=== PATIENT | female | born 1970 | race Caucasian/White ===

== ENCOUNTER 2018-01-22 19:06 | Emergency (ER) | payer MEDICAID ==
[~2018-01-22] VITALS: Ht 165.1 cm; Wt 61.2 kg
[2018-01-22 19:19] VITALS: Ht 165.1 cm; Wt 61.2 kg
[2018-01-22 21:48] VITALS: BP 122/88
== END 2018-01-22 21:48 | disposition home or self-care (01) ==
LOC: ED 19:06
DX: S61.011A Laceration without foreign body of right thumb without damage to nail, initial encounter (principal); J45.909 Unspecified asthma, uncomplicated; Z88.0 Allergy status to penicillin; Z87.39 Personal history of other diseases of the musculoskeletal system and connective tissue; W22.8XXA Striking against or struck by other objects, initial encounter; Y93.89 Activity, other specified; Y92.89 Other specified places as the place of occurrence of the external cause; Y99.8 Other external cause status
CPT/HCPCS: 90715; J1885; J2001